=== PATIENT | male | born 1995 | race Caucasian/White ===

== ENCOUNTER 2022-09-26 19:13 | Emergency (ER) | payer SELFPAY ==
[~2022-09-26] VITALS: Ht 170.2 cm; Wt 64.0 kg
[2022-09-26 19:16] VITALS: BP_DIAS 80
[2022-09-26] MEDS ORDERED: ONDANSETRON HCL 4MG/2ML INJ IV STA (19:20)
[2022-09-26] MEDS ORDERED: SODIUM CHLORIDE 0.9% 1,000 ML IV ONE (19:30)
[2022-09-26 19:40] VITALS: BP_SYST 128
== END 2022-09-26 19:55 | disposition home or self-care (01) ==
LOC: ER 19:13
DX: F10.129 Alcohol abuse with intoxication, unspecified (principal); Y90.0 Blood alcohol level of less than 20 mg/100 ml
CPT/HCPCS: 99283; J7030